=== PATIENT | female | born 1950 | race African-American/Black ===

== ENCOUNTER 2017-05-16 08:54 | Day surgery (SDC) | payer OTHER, MEDICARE ==
[2017-05-16] MEDS ORDERED: PROPOFOL 40 ML (09:57)
[2017-05-16] MEDS ORDERED: LIDOCAINE 100 MG SYRINGE (09:58)
[2017-05-16] MEDS ORDERED: LIDOCAINE 1% (MDV) 20 ML INJ (10:01)
== END 2017-05-16 14:01 | disposition home or self-care (01) ==
LOC: GIL 08:54
DX: K44.9 Diaphragmatic hernia without obstruction or gangrene (principal); K21.9 Gastro-esophageal reflux disease without esophagitis; K29.70 Gastritis, unspecified, without bleeding; D12.3 Benign neoplasm of transverse colon; K57.90 Diverticulosis of intestine, part unspecified, without perforation or abscess without bleeding; K64.8 Other hemorrhoids; J44.9 Chronic obstructive pulmonary disease, unspecified; E11.9 Type 2 diabetes mellitus without complications
CPT/HCPCS: 43239; 82962; 87081; 88305